=== PATIENT | female | born 1995 | race Caucasian/White ===

== ENCOUNTER 2025-05-12 18:01 | Emergency (ER) | payer OTHER ==
[2025-05-12] MEDS ORDERED: LIDOCAINE 1% 20 ML MDV ONE (19:37)
--- NOTE | 2025-05-12 19:48 | EDPHYS ---
Physician Documentation [facility] Name: Penny Rai Age: 29 yrs Sex: Female : 1995 Arrival Date: 05/12/2025 Time: 18:01 Bed 5 Private MD: ED Physician Vanessa Wright HPI: 05/12 19:48 This 29 yrs old Female presents to ER via Ambulatory with complaints of dr5 Abscess - GROIN AREA. 19:48 The patient presents with an abscess of the right lower quadrant. Onset: The dr5 symptoms/episode began/occurred 4 day(s) ago. Patient is a 29-year-old female with history of asthma coming in with 4 days of developing abscess to right lower abdomen right at suprapubic area. Patient reports that she noticed a ingrown hair get red and worse in the last 4 days. Patient denies any drainage but continued pressure.. 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 - Infectious Disease History:: Denies. - Social history:: Smoking status: Patient reports the use of cigarette tobacco products, smokes .25 packs per day. ROS: 19:48 Constitutional: as per hpi dr5 Exam: 19:48 Constitutional: This is a well developed, well nourished patient who is awake, alert, dr5 and in no acute distress. Head/Face: Normocephalic, atraumatic. Eyes: Pupils equal round and reactive to light, extra-ocular motions intact. Lids and lashes normal. Conjunctiva and sclera are non-icteric and not injected. Cornea within normal limits. Periorbital areas with no swelling, redness, or edema. Chest/axilla: Normal chest wall appearance and motion. Nontender with no deformity. No lesions are appreciated. Cardiovascular: Regular rate and rhythm with a normal S1 and S2. Normal PMI, no JVD. No pulse deficits. Respiratory: Lungs have equal breath sounds bilaterally, clear to auscultation. No rales, rhonchi or wheezes noted. No increased work of breathing, no retractions or nasal flaring. Abdomen/GI: Soft, non-tender, non-distended Female : Normal external genitalia. Skin: Warm, dry with normal turgor. Normal color with no rashes, no lesions. Abscess noted to right suprapubic area at hairline with mild surrounding cellulitis. Tender to palpation. Positive fluctuance and induration noted. MS/ Extremity: Pulses equal, no cyanosis. Neurovascular intact. Full, normal range of motion. Neuro: Awake and alert, GCS 15, oriented to person, place, time, and situation. Cranial nerves II-XII grossly intact. Motor strength 5/5 in all extremities. Sensory grossly intact. Cerebellar exam normal. Normal gait. Vital Signs: 18:26 BP 165 / 94; Pulse 87; Resp 17; Pulse Ox 98% ; Weight 98.43 kg; Height 5 ft. 5 in. ; ll1 Pain 6/10; 19:28 BP 129 / 74; Pulse 68; Resp 18; Temp 98.1; Pulse Ox 100% on R/A; Weight 97.52 kg; tb4 Height 5 ft. 5 in. ; Pain 6/10; 19:28 Body Mass Index 35.78 (97.52 kg, 165.1 cm) tb4 18:26 Pain Scale: Adult ll1 19:28 Pain Scale: Adult tb4 Procedures: 19:48 I \T\ D: Incision and drainage was performed for an abscess of the right right femoral dr5 area Prepped with alcohol, Anesthetized with 3 ml's 1% Lidocaine. Incised with #11 blade. Drained moderate amount purulent fluid. bloody fluid. Loculations removed. Abscess cavity explored. Dressing: the patient tolerated the procedure well. MDM: 18:11 Medical Screening Exam initiated dr5 19:48 Differential diagnosis: abscess, allergic reaction, cellulitis. Data reviewed: vital dr5 signs, nurses notes. Consideration of Admission/Observation Escalation of care including admission/observation considered. Considered admission if patient was febrile with extensive cellulitis. I considered the following discharge prescriptions or medication management in the emergency department I discussed and recommended Over The Counter medications, Medications were administered in the Emergency Department. See MAR. Care significantly affected by the following chronic conditions: Asthma. Care significantly affected by the following Social Determinants of Health: Poor access to healthcare and/or lack of insurance, Poor access to transportation, Problems related to employment. Counseling: I had a detailed discussion with the patient and/or guardian regarding the historical points, exam findings, and any diagnostic results supporting the discharge/admit diagnosis, the presence of at least one elevated blood pressure reading (>120/80) during this emergency department visit, the need for outpatient follow up, for definitive care, a family practitioner, to return to the emergency department if symptoms worsen or persist or if there are any questions or concerns that arise at home. Medication response: Lidocaine. Response to treatment: the patient's symptoms have markedly improved after treatment. Special discussion: I have referred the patient to see his PCP for further evaluation of high blood pressure. I discussed with the patient/guardian in detail that at this point there is no indication for admission to the hospital. It is understood, however, that if the symptoms persist or worsen the patient needs to return immediately for re-evaluation. I discussed in detail with the patient the higher chance of wound infection based on his presenting history. Based on the history and exam findings, there is no indication for further emergent testing or inpatient evaluation. I discussed with the patient/guardian the need to see the primary care provider for further evaluation of the symptoms. ED course: Incision and drainage completed with purulent drainage. Patient reports he is feeling much better. First dose of antibiotics given in ER. Will give patient pain medication as well as antibiotics. Strict ER precautions given. All question answered.. 05/12 19:31 Order name: Incision \T\ Drainage Setup; Complete Time: 20:01 dr5 Administered Medications: 20:00 Drug: Lidocaine Infiltration (1 %) 20 ml 20 ml Infiltration once; to bedside {Note: tb4 Given by provider.} Volume: 20 ml; Route: Infiltration; 20:15 Follow up: Response: No adverse reaction tb4 20:15 Drug: Cephalexin PO 500 mg PO once Route: PO; tb4 20:50 Follow up: Response: No adverse reaction tb4 20:15 Drug: Trimethoprim-Sulfamethoxazole PO (160 mg-800 mg (DS) 1 tablet PO once Route: PO; tb4 20:50 Follow up: Response: No adverse reaction tb4 Disposition Summary: 05/12/25 19:47 Discharge Ordered Notes: Location: Home dr5 Condition: Stable dr5 Diagnosis - Cutaneous abscess of other sites dr5 Followup: dr5 - With: Emergency Department - When: As needed - Reason: Worsening of condition Followup: dr5 - With: Private Physician - When: 1 - 2 days - Reason: Recheck today's complaints, Continuance of care, Re-evaluation by your physician Discharge Instructions: - Discharge Summary Sheet dr5 - Skin Abscess dr5 - Incision and Drainage dr5 Forms: - Work release form vc1 - Medication Reconciliation Form dr5 - Antibiotic Education dr5 - Patient Portal Instructions dr5 - Leadership Thank You Letter dr5 Prescriptions: - Cephalexin 500 mg Oral Capsule - take 1 capsule ORAL route every 12 hours for 10 days; 20 capsule; Refills: 0, dr5 Product Selection Permitted - Tramadol 50 mg Oral Tablet - take 1 tablet ORAL route every 8 hours as needed; 12 tablet; Refills: 0, dr5 Product Selection Permitted - Bactrim DS 800-160 mg Oral Tablet - take 1 tablet ORAL route every 12 hours for 10 days; 20 tablet; Refills: 0, dr5 Product Selection Permitted Signatures: Fariba Cox, RN RN ll1 Jayme Young, TRACK MOVING MACHINE OPERATOR-C TRACK MOVING MACHINE OPERATOR-Cdr5 Tamiko Huang RN RN tb4
--- NOTE | 2025-05-12 19:48 | ER ---
Nurse's Notes [facility] Name: Penny Rai Age: 29 yrs Sex: Female : 1995 Arrival Date: 05/12/2025 Time: 18:01 Bed 5 Private MD: Diagnosis: Cutaneous abscess of other sites Presentation: 05/12 18:26 Chief complaint: Patient states: R groin abscess for 4 days, got worse yesterday. No ll1 drainage or fever. Coronavirus screen: Client denies travel out of the [place] in the last 14 days. At this time, the client does not indicate any symptoms associated with coronavirus-19. Ebola Screen: Patient denies travel to an Ebola-affected area in the 21 days before illness onset. Initial Sepsis Screen: Does the patient meet any 2 criteria? No. Patient's initial sepsis screen is negative. Does the patient have a suspected source of infection? No. Patient's initial sepsis screen is negative. Risk Assessment: Do you want to hurt yourself or someone else? Patient reports no desire to harm self or others. Onset of symptoms was May 09, 2025. 18:26 Method Of Arrival: Ambulatory ll1 18:26 Acuity: GERTRUDIS 4 ll1 Triage Assessment: 18:26 General: Appears uncomfortable, Behavior is calm, cooperative, appropriate for age. ll1 Pain: Complains of pain in R groin Quality of pain is described as aching. Derm: Abscess located on R groin. ENERGY MANAGEMENT SPECIALIST: 20:49 Not tb4 Historical: - Allergies: 18:25 No Known Allergies; ll1 - PMHx: 18:25 Asthma; ll1 - PSHx: 18:25 section; Cholecystectomy; D\T\C; ll1 - Immunization history:: Adult Immunizations up to date. - Infectious Disease History:: Denies. - Social history:: Smoking status: Patient reports the use of cigarette tobacco products, smokes .25 packs per day. Screenin:28 [facility] ED Fall Risk Assessment (Adult) History of falling in the last 3 months, tb4 including since admission No falls in past 3 months (0 pts) Confusion or Disorientation No (0 pts) Intoxicated or Sedated No (0 pts) Impaired Gait No (0 pts) Mobility Assist Device Used No (0 pt) Altered Elimination No (0 pt) Score/Fall Risk Level 0 - 2 = Low Risk Oriented to surroundings, Maintained a safe environment, Educated pt \T\ family on fall prevention, incl call for assistance when getting out of bed. Abuse screen: Denies threats or abuse. Nutritional screening: No deficits noted. Tuberculosis screening: No symptoms or risk factors identified. Assessment: 19:24 Reassessment: Patient and/or family updated on plan of care and expected duration. Pain ll1 level reassessed. 19:28 General: Appears uncomfortable, Behavior is calm, cooperative. Pain: Complains of pain tb4 in right femoral area Pain does not radiate. Pain currently is 6 out of 10 on a pain scale. Quality of pain is described as burning, Pain began gradually, 2-3 days ago. Neuro: No deficits noted. Level of Consciousness is awake, alert, obeys commands, Oriented to person, place, time, situation, Moisture Tester are equal bilaterally Moves all extremities. Gait is steady, Speech is normal. Cardiovascular: No deficits noted. Respiratory: No deficits noted. Airway is patent Trachea midline Respiratory effort is even, unlabored, Respiratory pattern is regular, symmetrical. GI: No deficits noted. No signs and/or symptoms were reported involving the gastrointestinal system. : No deficits noted. No signs and/or symptoms were reported regarding the genitourinary system. Derm: Skin is intact, Abscess located on right femoral area Reports Pressure. Musculoskeletal: No deficits noted. Vital Signs: 18:26 BP 165 / 94; Pulse 87; Resp 17; Pulse Ox 98% ; Weight 98.43 kg; Height 5 ft. 5 in. ; ll1 Pain 6/10; 19:28 BP 129 / 74; Pulse 68; Resp 18; Temp 98.1; Pulse Ox 100% on R/A; Weight 97.52 kg; tb4 Height 5 ft. 5 in. ; Pain 6/10; 19:28 Body Mass Index 35.78 (97.52 kg, 165.1 cm) tb4 18:26 Pain Scale: Adult ll1 19:28 Pain Scale: Adult tb4 ED Course: 18:06 Patient arrived in ED. cj3 18:10 Jay[facility] FNP-C [facility]. [facility] 18:10 Vanessa Wright is Attending Physician. dr5 18:27 Triage completed. ll1 19:24 Arm band placed on Patient placed in an exam room, on a stretcher. ll1 19:28 Patient has correct armband on for positive identification. Call light in reach. Side tb4 rails up X 1. Adult w/ patient. Client placed on continuous cardiac and pulse oximetry monitoring. NIBP monitoring applied. Door closed. Warm blanket given. 19:28 Assist provider with I \T\ D: of an abscess on right groin Set up I\T\D tray. Performed by tb 4 Jayme TINEO-C Dressing with 4X4s. Patient did not have IV access during this emergency room visit. 20:49 Provided Education on: Take medication as prescribed. tb4 Administered Medications: 20:00 Drug: Lidocaine Infiltration (1 %) 20 ml 20 ml Infiltration once; to bedside {Note: tb4 Given by provider.} Volume: 20 ml; Route: Infiltration; 20:15 Follow up: Response: No adverse reaction tb4 20:15 Drug: Cephalexin PO 500 mg PO once Route: PO; tb4 20:50 Follow up: Response: No adverse reaction tb4 20:15 Drug: Trimethoprim-Sulfamethoxazole PO (160 mg-800 mg (DS) 1 tablet PO once Route: PO; tb4 20:50 Follow up: Response: No adverse reaction tb4 Medication: 19:28 VIS not applicable for this client. tb4 Outcome: 19:47 Discharge ordered by . dr5 20:49 Discharged to home ambulatory, tb4 20:49 Condition: stable 20:49 Discharge instructions given to patient, Instructed on discharge instructions, follow up and referral plans. Demonstrated understanding of instructions, follow-up care, medications, Prescriptions given X 3, 20:51 Patient left the ED. tb4 Signatures: Fariba Cox, RN RN ll1 Jayme Young FNP-C GANG PUSHER-Cdr5 Adeline Grewal cj3 Tamiko Huang, RN RN tb4 Corrections: (The following items were deleted from the chart) 20:00 19:38 Lidocaine Infiltration (1 %) 20 ml 20 ml Infiltration tb4 tb4
[2025-05-12] MEDS ORDERED: CEPHALEXIN 250 MG CAP ONE (20:02)
[2025-05-12] MEDS ORDERED: SMZ./TMP. 800/160 MG TABLET ONE (20:03)
[2025-05-12 21:04] VITALS: BP 129/74; TEMP 98.1; O2SAT 100
== END 2025-05-12 20:51 | disposition home or self-care (01) ==
LOC: ER 18:01
PROC: 0H9KXZZ Drainage of Right Lower Leg Skin, External Approach (ICD-10-PCS; principal; 2025-05-12)
DX: L02.415 Cutaneous abscess of right lower limb (principal)
CPT/HCPCS: 99284; 10060; J2003

== ENCOUNTER 2025-05-16 23:23 | Inpatient (IN) | payer OTHER ==
[2025-05-17] MEDS ORDERED: MORPHINE 4 MG/ML SYR ONE (01:27)
[2025-05-17] MEDS ORDERED: ONDANSETRON 4 MG/2 ML VIAL ONE ×2 (01:27→14:12)
[2025-05-17 01:31] LABS: Absolute Lymphocytes (CBC) 3.2 K/uL (0.7-4.9); Hematocrit 42.6 % (36.0-45.0); Hemoglobin 14.7 g/dL (12.0-15.0); MCH 30.2 pg (27.0-35.0); MCHC 34.5 g/dL (32.0-36.0); MCV 87.5 fL (80-100); MPV 9.6 fL (7.6-11.3); Nucleated RBC Absolute Count 0.0 (0-0); Nucleated Red Blood Cells % 0.0 % (0-0); RBC Red Blood Cell Count 4.87 M/uL (3.86-4.86); White Blood Count 6.80 thou/uL (4.3-10.9)
[2025-05-17 01:34] LABS: PT Prothrombin Time 12.4 SECONDS (10-13.0); PTT, Activated Partial Thromb 31.5 SECONDS (27.2-37.4); Protime INR 1.1
[2025-05-17 01:44] LABS: Urine Culture Reflex Order NOT NEEDED; Urine Microscopic Reflex YN ORDER UMIC
[2025-05-17 01:48] LABS: ALT/SGPT 93.0 U/L (13-56); AST/SGOT 61.0 U/L (15-37); Albumin 3.5 g/dL (3.4-5.0); Albumin/Globulin Ratio 0.8 (1.1-1.8); Alkaline Phosphatase 120.0 U/L (45-117); Anion Gap 9.6 mEq/L (5.0-15.0); BUN Blood Urea Nitrogen 7.0 mg/dL (7-18); Globulin 4.2 g/dL (2.3-3.5); Glucose Level 333.0 mg/dL (74-106); Potassium 3.6 mEq/L (3.5-5.1)
[2025-05-17] MEDS ORDERED: NA CHLORIDE 0.9% 250 ML ONE (02:00)
[2025-05-17] MEDS ORDERED: VANCOMYCIN 1 GM/VIAL ONE (02:00)
[2025-05-17] MEDS ORDERED: NA CHLORIDE 0.9% 100 ML ONE (02:01)
[2025-05-17] MEDS ORDERED: NA CHLORIDE 0.9% 3,000 ML ONE (02:01)
[2025-05-17] MEDS ORDERED: CEFEPIME 1 GM/VIAL ONE (02:02)
--- NOTE | 2025-05-17 04:20 | RAD REPORT ---
EXAM DESCRIPTION: Abdomen Pelvis W Contrast CLINICAL HISTORY: right suprapubic swelling and erythema COMPARISON: None Available. TECHNIQUE: CT of the abdomen and pelvis performed following IV administration of iodinated contrast . This exam was performed according to our departmental dose-optimization program, which includes automated exposure control, adjustment of the mA and/or kV according to patient size and/or use of it erative reconstruction technique. FINDINGS: Lung Bases: The visualized lung bases are clear. Bones: Mild multilevel facet arthropathy. Mild posterior disc osteophyte complex at L5/S1 produces mi ld neural foraminal narrowing. Mild bilateral hip joint space narrowing. Abdomen: Liver: Hepatomegaly with decreased density. Gallbladder: Prior cholecystectomy. Spleen, Pancreas, and Adrenal Glands: The spleen, pancreas, and adrenal glands are unremarkable. Kidneys: No hydronephrosis or obstructing calculus. Vasculature: The aorta and IVC have normal caliber and position. The portal vein is patent. The pro ximal visceral and renal arteries are patent. Stomach: The stomach and duodenum have normal course. Other: No free intraperitoneal air. No free fluid or lymphadenopathy. Mild nonspecific fat strand ing in the subcutaneous soft tissues overlying the pubic symphysis. No well-circumscribed fluid collection. Pelvis: Bladder: Urinary bladder is unremarkable. Bowel: No dilated loops of large or small bowel. Moderate amount of stool. Appendix: Normal appendix. Pelvis: Uterus is not enlarged. IMPRESSION: 1. Mild nonspecific fat stranding in the subcutaneous soft tissues overlying the pubic symphysis. N o well-circumscribed fluid collection. This could be seen with cellulitis. 2. Hepatomegaly and hepatic steatosis. Electronically signed by: Tra Tracy DO 05/17/2025 04:09 AM [facility] [id number] Due to temporary technical issues with the PACS/Tittat reporting system, reports are being frank d by the in-house radiologist without review as a courtesy to ensure prompt reporting the interpreting radiologist is fully responsible for the content of the report. Transcribed Date/Time: 05/17/2025 4:20 AM
--- NOTE | 2025-05-17 04:57 | EDPHYS ---
Physician Documentation [facility] Name: Penny Rai Age: 29 yrs Sex: Female : 1995 Arrival Date: 05/16/2025 Time: 23:23 Bed 13 Private MD: ED Physician Rojelio Steele HPI: 05/17 00:40 This 29 yrs old Female presents to ER via Ambulatory with complaints of Abscess. cp 00:40 Patient is a 29-year-old female with past medical history significant for asthma who cp returns to the emergency department after being seen on 05/12/2025 for abscess and cellulitis of the right suprapubic area. Patient reports at that visit the area was drained and she was prescribed antibiotics which she has been taking but has had increasing redness and swelling to the area over the last several days. Patient has not measured a fever at home, no vomiting and/or diarrhea and denies any abdominal pain. 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 - Infectious Disease History:: Denies. - Social history:: Smoking status: Patient reports the use of cigarette tobacco products, smokes one-half pack cigarettes per day, Patient uses alcohol, occasionally. Patient/guardian denies using street drugs. ROS: 00:45 Constitutional: Negative for body aches, chills, fever, poor PO intake, cp 00:45 Cardiovascular: Negative for chest pain, cp 00:45 Respiratory: Negative for cough, shortness of breath, wheezing, 00:45 Abdomen/GI: Negative for abdominal pain, vomiting, diarrhea, constipation, 00:45 Skin: Positive for cellulitis, of the right suprapubic area, 00:45 Neuro: Negative for altered mental status, dizziness, headache, weakness, 00:45 All other systems are negative, Exam: 00:50 Constitutional: The patient appears in no acute distress, alert, awake, non-toxic, well cp developed, well nourished, obese, uncomfortable, 00:50 Head/Face: Normocephalic, atraumatic. cp 00:50 Eyes: Periorbital structures: appear normal, Conjunctiva: normal, no exudate, no injection, Sclera: no appreciated abnormality, Lids and lashes: appear normal, 00:50 ENT: External ear(s): are unremarkable, Nose: is normal, Mouth: Lips: moist, Oral mucosa: moist, 00:50 Chest/axilla: Inspection: normal, 00:50 Cardiovascular: Rate: normal, Rhythm: regular, 00:50 Respiratory: the patient does not display signs of respiratory distress, Respirations: normal, no use of accessory muscles, no retractions, labored breathing, is not present, Breath sounds: are clear throughout, no decreased breath sounds, no stridor, no wheezing, 00:50 Abdomen/GI: Inspection: obese Palpation: abdomen is soft and non-tender, in all quadrants, 00:50 Back: pain, is absent, ROM is normal, 00:50 Skin: large area of induration and erythema noted left suprapubic area, scant drainage expressed, tender to palpation. no erythema noted of external genitalia. 00:53 ECG was reviewed by the Attending Physician. cp Vital Signs: 00:05 BP 132 / 87; Pulse 81; Resp 16 S; Temp 98(O); Pulse Ox 98% on R/A; Weight 98.43 kg (R); lg3 Height 5 ft. 5 in. (R); 01:02 BP 148 / 88; Pulse 77; Resp 18; Temp 98(O); Pulse Ox 100% on R/A; Weight 98.43 kg; tb4 Height 5 ft. 5 in. ; Pain 6/10; 02:04 BP 137 / 74; Pulse 88; Resp 18; Pulse Ox 99% on R/A; Pain 2/10; tb4 03:09 BP 144 / 85; Pulse 77; Resp 17; Pulse Ox 97% on R/A; Pain 2/10; tb4 04:00 BP 146 / 78; Pulse 73; Resp 16; Pulse Ox 100% ; Pain 2/10; tb4 05:33 BP 137 / 86; Pulse 82; Resp 19; Pulse Ox 100% on R/A; tb4 01:02 Body Mass Index 36.11 (98.43 kg, 165.1 cm) tb4 01:02 Pain Scale: Adult tb4 02:04 Pain Scale: Adult tb4 03:09 Pain Scale: Adult tb4 04:00 Pain Scale: Adult tb4 MDM: 00:08 Medical Screening Exam initiated cp 04:55 Differential diagnosis: abscess, cellulitis. rn 04:55 Data reviewed: vital signs, nurses notes, lab test result(s), radiologic studies, CT rn scan, and as a result, I will admit patient. Consideration of Admission/Observation Patient was admitted/placed on observation. Escalation of care including admission/observation considered. Management of patient was discussed with the following: Hospitalist: Case and management discussed with hospitalist Dr. Love, will admit for IV antibiotics. Counseling: I had a detailed discussion with the patient and/or guardian regarding the historical points, exam findings, and any diagnostic results supporting the discharge/admit diagnosis, lab results, radiology results, the need for further work-up and treatment in the hospital. Response to treatment: the patient's symptoms have mildly improved after treatment, and as a result, I will admit patient. 05/17 00:37 Order name: Wound Culture cp 05/17 00:37 Order name: Blood Culture Adult (2) cp 05/17 00:37 Order name: CBC with Diff; Complete Time: 01:45 cp 05/17 01:45 Interpretation: Normal except: RBC 4.87. cp 05/17 00:37 Order name: CMP; Complete Time: 03:00 cp 05/17 00:37 Order name: Lactate w/ 2H reflex if indic.; Complete Time: 03:00 cp 05/17 00:37 Order name: Protime (+inr); Complete Time: 01:40 cp 05/17 00:37 Order name: Ptt, Activated; Complete Time: 01:40 cp 05/17 00:37 Order name: UA Rfx Ilir Cult if indicated; Complete Time: 01:45 cp 05/17 00:37 Order name: Test, Serum; Complete Time: 01:40 cp 05/17 00:53 Order name: Glucose, Ancillary Testing; Complete Time: 01:40 EDMS 05/17 01:40 Interpretation: Reviewed. cp 05/17 01:48 Order name: Ghost Lactate-NO COLLECT Timer; Complete Time: 04:09 EDMS 05/17 05:36 Order name: Lactate w/ 2H reflex if indic. EDMS 05/17 05:36 Order name: CBC with Automated Diff EDDC 05/17 05:36 Order name: CBC with Automated Diff EDDC 05/17 05:36 Order name: Comprehensive Metabolic Panel EDDC 05/17 05:36 Order name: Comprehensive Metabolic Panel EDDC 05/17 07:33 Order name: Hemoglobin A1c EDDC 05/17 00:37 Order name: CT Abd/Pelvis - IV Contrast Only 05/17 05:36 Order name: CONS Physician Consult EDDC 05/17 00:37 Order name: Accucheck; Complete Time: 00:53 cp 05/17 00:37 Order name: Cardiac monitoring; Complete Time: 00:53 cp 05/17 00:37 Order name: EKG - Nurse/Tech; Complete Time: 00:53 cp 05/17 00:37 Order name: IV Saline Lock - Large Bore; Complete Time: 00:53 cp 05/17 00:37 Order name: Labs collected and sent; Complete Time: 00:53 cp 05/17 00:37 Order name: O2 Per Protocol; Complete Time: 00:53 cp 05/17 00:37 Order name: O2 Sat Monitoring; Complete Time: 00:53 cp 05/17 00:37 Order name: Vital Signs; Complete Time: 01:08 cp EC:53 Rate is 84 beats/min. Rhythm is regular. IA interval is normal. QRS interval is cp prolonged at 106 msec. QT interval is normal. T waves are Inverted in leads aVL, aVR, V2. Interpreted by me. Reviewed by me. Administered Medications: 01:36 Drug: morphine IVP or IV 4 mg IVP once over 4 mins Route: IVP; Infused Over: 4 mins; tb4 Site: left antecubital; 02:34 Follow up: Response: No adverse reaction; Pain is decreased; RASS: Alert and Calm (0) tb4 01:36 Drug: Ondansetron IVP 4 mg IVP once; over 2 minutes Route: IVP; Site: left antecubital; tb4 02:34 Follow up: Response: No adverse reaction tb4 02:33 Drug: Cefepime IVPB 1 grams IVPB at 200 ml/hr once over 30 mins; (mix in NS 100 mL) tb4 Route: IVPB; Rate: 200 ml/hr; Infused Over: 30 mins; Site: left antecubital; 03:00 Follow up: Response: No adverse reaction; IV Status: Completed infusion tb4 02:34 Drug: NS 0.9% IV (30 ml/kg) 30 ml/kg IV at bolus once; Sepsis Protocol; to be given as tb4 a bolus over 90 minutes Route: IV; Rate: bolus; Site: left antecubital; 05:30 Follow up: Response: No adverse reaction; IV Status: Completed infusion; IV Intake: tb4 2952.9ml 02:34 Drug: vancoMYCIN IVPB 1 grams IVPB once over 2 hrs Route: IVPB; Infused Over: 2 hrs; tb4 Site: left antecubital; 05:12 Follow up: Response: No adverse reaction; IV Status: Completed infusion tb4 Disposition: 04:55 Co-signature as Attending Physician, Rojelio Steele MD I agree with the assessment and rn plan of care. I reviewed the patient's care provided by Advanced Practice Provider \T\ agree w/ the diagnosis \T\ care plan. I personally saw the pt \T\ performed a substantive portion of the visit, incldng all aspects of the (History/Exam/Medical Decision Making). PA/MOLDING LINE OPERATOR's history reviewed, patient interviewed, and examined. HPI: 29-year-old female status post incision and drainage and now worsening redness and swelling to suprapubic region I agree with assessment and care plan and confirm the diagnosis (es) above. I performed majority of care of this patient including history, interpretation of results and admission to hospitalist. Disposition Summary: 05/17/25 04:56 Hospitalization Ordered Notes: Hospitalization Status: Inpatient Admission rn Provider: Nathaniel Love rn Condition: Stable rn Problem: new rn Symptoms: have worsened rn Bed/Room Type: Standard rn Location: Telemetry/MedSurg (Inpatient)(05/17/25 06:50) ja1 Room Assignment: 411(05/17/25 06:50) ja1 Diagnosis - Cellulitis of abdominal wall rn Forms: - Medication Reconciliation Form rn - SBAR form rn - Leadership Thank You Letter rn Signatures: Dispatcher [employer] Rojelio Pate MD MD rn Page, Corey, PA PA cp Aguilar, Jose, RN RN ja1 Edilia Aguila RN RN [email or web address] Anat Mendez Terri RN RN tb4 Corrections: (The following items were deleted from the chart) 00:37 00:37 Wound Culture+BA.LAB.BRZ ordered. EDMS EDMS 00:37 00:37 BLOOD CULTURE*+BA.LAB.BRZ ordered. EDMS EDMS 00:37 00:37 CBC+H.LAB.BRZ ordered. EDMS EDMS 00:37 00:37 COMPREHENSIVE METABOLIC PANEL+C.LAB.BRZ ordered. EDMS EDMS 00:37 00:37 LACTATE+C.LAB.BRZ ordered. EDMS EDMS 00:37 00:37 PROTIME (+INR)+COAG.LAB.BRZ ordered. EDMS EDMS 00:37 00:37 PTT, ACTIVATED+COAG.LAB.BRZ ordered. EDMS EDMS 00:37 00:37 UA Rfx Ilir Cult if indicated+U.LAB.BRZ ordered. EDMS EDMS 00:37 00:37 TEST, SERUM+SC.LAB.BRZ ordered. EDMS EDMS 00:38 00:38 Abdomen Pelvis W Con+CT.RAD.BRZ ordered. EDMS EDMS 05:17 04:56 Telemetry/MedSurg (Inpatient) panchito fermin 05:17 04:56 panchito fermin 06:50 05:17 [facility] ER HOLD vk ja1 06:50 05:17 ERHOLD- zander ja1
--- NOTE | 2025-05-17 04:57 | ER ---
Nurse's Notes [facility] Name: Penny Rai Age: 29 yrs Sex: Female : 1995 Arrival Date: 05/16/2025 Time: 23:23 Bed 13 [facility] MD: Diagnosis: Cellulitis of abdominal wall Presentation: 05/17 00:05 Chief complaint: Patient states: seen on Wednesday here for abcess in my right groin and lg3 it was drained. i think its back. Coronavirus screen: Client denies travel out of the [place] in the last 14 days. At this time, the client does not indicate any symptoms associated with coronavirus-19. Ebola Screen: No symptoms or risks identified at this time. Initial Sepsis Screen: Does the patient meet any 2 criteria? No. Patient's initial sepsis screen is negative. Does the patient have a suspected source of infection? No. Patient's initial sepsis screen is negative. Risk Assessment: Do you want to hurt yourself or someone else? Patient reports no desire to harm self or others. Onset of symptoms is unknown. 00:05 Method Of Arrival: Ambulatory lg3 00:05 Acuity: GERTRUDIS 3 lg3 Triage Assessment: 00:07 General: Appears in no apparent distress. uncomfortable, Behavior is calm, cooperative. lg3 Pain: Complains of pain in pelvis. EENT: No deficits noted. No signs and/or symptoms were reported regarding the EENT system. Neuro: No deficits noted. Pereira Agitation-Sedation Scale (RASS): 0 - Alert and Calm Level of Consciousness is awake, alert, obeys commands, Oriented to person, place, time, situation. Cardiovascular: No deficits noted. Denies chest pain, shortness of breath, Capillary refill < 3 seconds Clubbing of nail beds is absent JVD is absent Patient's skin is warm and dry. Respiratory: No deficits noted. Airway is patent Respiratory effort is even, unlabored, Respiratory pattern is regular, symmetrical. GI: No deficits noted. No signs and/or symptoms were reported involving the gastrointestinal system. : No signs and/or symptoms were reported regarding the genitourinary system. Derm: Reports abscess to right groin. Musculoskeletal: No deficits noted. No signs and/or symptoms reported regarding the musculoskeletal system. Circulation, motion, and sensation intact. Range of motion: intact in all extremities. 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 - Infectious Disease History:: Denies. - Social history:: Smoking status: Patient reports the use of cigarette tobacco products, smokes one-half pack cigarettes per day, Patient uses alcohol, occasionally. Patient/guardian denies using street drugs. Screenin:02 [facility] ED Fall Risk Assessment (Adult) History of falling in the last 3 months, tb4 including since admission No falls in past 3 months (0 pts) Confusion or Disorientation No (0 pts) Intoxicated or Sedated No (0 pts) Impaired Gait No (0 pts) Mobility Assist Device Used No (0 pt) Altered Elimination No (0 pt) Score/Fall Risk Level 0 - 2 = Low Risk Oriented to surroundings. Abuse screen: Denies threats or abuse. Nutritional screening: No deficits noted. Tuberculosis screening: No symptoms or risk factors identified. Assessment: 00:38 Reassessment: Patient is alert, oriented x 3, equal unlabored respirations, skin tb4 warm/dry/pink. See triage note. General: Appears uncomfortable, Behavior is calm, cooperative. Pain: Complains of pain in groin and right femoral area Pain does not radiate. Pain currently is 6 out of 10 on a pain scale. Quality of pain is described as pressure, Pain began gradually, week and a half Is continuous, Alleviated by nothing. Aggravated by repositioning. Neuro: No deficits noted. Level of Consciousness is awake, alert, obeys commands, Oriented to person, place, time, situation, Moves all extremities. Full function Gait is steady, Speech is normal, Facial symmetry appears normal. Cardiovascular: No deficits noted. Respiratory: No deficits noted. Airway is patent Trachea midline Respiratory effort is even, unlabored, Respiratory pattern is regular, symmetrical. GI: No deficits noted. : No deficits noted. Derm: Skin is intact, is healthy with good turgor, Abscess located on groin and right femoral area Reports increased pressure. Musculoskeletal: No deficits noted. No signs and/or symptoms reported regarding the musculoskeletal system. Vital Signs: 00:05 BP 132 / 87; Pulse 81; Resp 16 S; Temp 98(O); Pulse Ox 98% on R/A; Weight 98.43 kg (R); lg3 Height 5 ft. 5 in. (R); 01:02 BP 148 / 88; Pulse 77; Resp 18; Temp 98(O); Pulse Ox 100% on R/A; Weight 98.43 kg; tb4 Height 5 ft. 5 in. ; Pain 6/10; 02:04 BP 137 / 74; Pulse 88; Resp 18; Pulse Ox 99% on R/A; Pain 2/10; tb4 03:09 BP 144 / 85; Pulse 77; Resp 17; Pulse Ox 97% on R/A; Pain 2/10; tb4 04:00 BP 146 / 78; Pulse 73; Resp 16; Pulse Ox 100% ; Pain 2/10; tb4 05:33 BP 137 / 86; Pulse 82; Resp 19; Pulse Ox 100% on R/A; tb4 01:02 Body Mass Index 36.11 (98.43 kg, 165.1 cm) tb4 01:02 Pain Scale: Adult tb4 02:04 Pain Scale: Adult tb4 03:09 Pain Scale: Adult tb4 04:00 Pain Scale: Adult tb4 ED Course: 05/16 23:26 Patient arrived in ED. jj6 23:28 Dhaval Hudson PA is PHCP. cp 23:28 Rojelio Steele MD is Attending Physician. cp 05/17 00:07 Triage completed. lg3 00:07 Arm band placed on right wrist. lg3 00:53 EKG done, by imaging technologist. ts3 00:53 Inserted saline lock: 20 gauge in left antecubital area, using aseptic technique. Blood ts3 collected. Flushed with 10 mL NS. 01:02 Patient has correct armband on for positive identification. Placed in gown. Bed in low tb4 position. Call light in reach. Side rails up X 1. Client placed on continuous cardiac and pulse oximetry monitoring. NIBP monitoring applied. cardiac monitor technician on. Door closed. Lights dimmed. Warm blanket given. 02:09 CT Abd/Pelvis - IV Contrast Only In Process Unspecified. EDMS 04:56 Nathaniel Love MD is Hospitalizing Provider. rn 05:34 No provider procedures requiring assistance completed. tb4 Administered Medications: 01:36 Drug: morphine IVP or IV 4 mg IVP once over 4 mins Route: IVP; Infused Over: 4 mins; tb4 Site: left antecubital; 02:34 Follow up: Response: No adverse reaction; Pain is decreased; RASS: Alert and Calm (0) tb4 01:36 Drug: Ondansetron IVP 4 mg IVP once; over 2 minutes Route: IVP; Site: left antecubital; tb4 02:34 Follow up: Response: No adverse reaction tb4 02:33 Drug: Cefepime IVPB 1 grams IVPB at 200 ml/hr once over 30 mins; (mix in NS 100 mL) tb4 Route: IVPB; Rate: 200 ml/hr; Infused Over: 30 mins; Site: left antecubital; 03:00 Follow up: Response: No adverse reaction; IV Status: Completed infusion tb4 02:34 Drug: NS 0.9% IV (30 ml/kg) 30 ml/kg IV at bolus once; Sepsis Protocol; to be given as tb4 a bolus over 90 minutes Route: IV; Rate: bolus; Site: left antecubital; 05:30 Follow up: Response: No adverse reaction; IV Status: Completed infusion; IV Intake: tb4 2952.9ml 02:34 Drug: vancoMYCIN IVPB 1 grams IVPB once over 2 hrs Route: IVPB; Infused Over: 2 hrs; tb4 Site: left antecubital; 05:12 Follow up: Response: No adverse reaction; IV Status: Completed infusion tb4 Medication: 01:02 VIS not applicable for this client. tb4 Intake: 05:30 IV: 2953ml; Total: 2953ml. tb4 Outcome: 04:56 Decision to Hospitalize by Provider. rn 08:10 Patient left the ED. ty Signatures: Dispatcher [employer] EDMS Rojelio Steele MD MD rn Page, Corey, PA PA cp Able, Lacie, RN RN lg3 Kelly Foster Tylor ty Tamiko Huang RN RN tb4 Kacy Rincon 3
[2025-05-17] MEDS ORDERED: ACETAMINOPHEN 325 MG TABLET PO PRN (05:32)
[2025-05-17] MEDS ORDERED: ONDANSETRON 4 MG/2 ML VIAL IV PRN (05:32)
--- NOTE | 2025-05-17 05:37 | P.HP ---
Certification for Inpatient Patient admitted to: Inpatient With expected LOS: >2 Midnights Practitioner: I am a practitioner with admitting privileges, knowledge of patient current condition, hospital course, and medical plan of care. Services: Services provided to patient in accordance with Admission requirements found in Title 42 Section 412.3 of the Code of Federal Regulations Patient History Date of Service: 05/17/25 Reason for admission: Suprapubic abscess History of Present Illness: 29 yrs old Femal with no significant past medical history other than asthma e who was brought to ER with pain and swelling in the suprapubic region. Patient was seen in the ER on 05/12/2025 for cellulitis and possible abscess of his right suprapubic area and had an I&D done and was discharged home with p.o. antibiotics came to ER with pain and worsening discomfort and swelling of the same area. Patient denies any fever or chills. No chest pain or shortness of breath. No nausea vomiting or diarrhea. Patient was assessed in the ER and was admitted for further management of suprapubic abscess and lactic acidosis - Past Medical/Surgical History Past Medical History: Reviewed- Non-Contributory Past Surgical History: Reviewed- Non-Contributory - Family History Family History: Reviewed- Non-Contributory - Social History Smoking Status: Never smoker Review of Systems 10-point ROS is otherwise unremarkable Other: Constitutional: Reports: generalized weakness. Skin: Denies: rash. Allergy/Immun: Denies: rhinorrhea, sneezing. Eyes: Denies: visual loss/blurred. ENT: Denies: earache, nasal congestion. Respiratory: Denies: non productive cough. Cardiovascular: Denies: chest pain, palpitations. GI: Denies: diarrhea, nausea. : Denies: dysuria. Musculoskeletal: Reports: arthritis. Denies: extremity pain. Heme: Denies: bleeding. Endocrine: Denies: polydipsia. Neuro: Reports: dizziness, gait problem, lightheaded, spinning sensation. Psych: Reports: anxiety. All systems rev & neg: except as noted Physical Examination - Vital Signs Temperature: 98.2 F Blood Pressure: 138/72 Pulse: 82 Respirations: 18 Pulse Ox (%): 94 - Physical Exam General: Alert, Oriented x3, Mild distress HEENT: Atraumatic, Normocephalic Neck: Supple Respiratory: Clear to auscultation bilaterally, Normal air movement Cardiovascular: Regular rate/rhythm, Normal S1 S2 Capillary refill: <2 Seconds Gastrointestinal: Soft and benign, W/out hepatosplenomegaly Musculoskeletal: No clubbing, No swelling Integumentary: No rashes, Tenderness/swelling, Erythema, Other (Suprapubic area on the right side) Neurological: Other (Alert awake nonfocal) Lymphatics: No axilla or inguinal lymphadenopathy - Studies Laboratory Data (last 24 hrs) 05/17/25 05/17/25 05/17/25 00:45 00:45 00:45 WBC 6.80 Hgb 14.7 Hct 42.6 Plt Count 242 PT 12.4 INR 1.10 APTT 31.5 Sodium 135 L Potassium 3.6 BUN 7 Creatinine 0.97 Glucose 333 H Total Bilirubin 0.3 AST 61 H ALT 93 H Alkaline Phosphatase 120 H Assessment and Plan - Plan Suprapubic abscess Right side Lactic acidosis Hyponatremia Elevated LFTs Plan IV hydration Lactic acid trended Started on antibiotics Pain control Surgical consult Will obtain cultures Change antibiotic as per sensitivity Asthma Continue home medications GI/DVT prophylaxis Advanced directive full code Discharge Plan: Home Plan to discharge in: 48 Hours - Advance Directives Does patient have a Living Will: No Does patient have a Durable POA for Healthcare: No - Code Status/Comfort Care Code Status: Full Code Time Spent Managing Pts Care (In Minutes): 48
[2025-05-17] MEDS: NA CHLORIDE 0.9% 1,000 ML IV SCH (06:00)
[2025-05-17] MEDS ORDERED: VANCOMYCIN 1 GM in NA CHLORIDE 0.9% 250 ML IVPB SCH (06:00)
[2025-05-17 06:30] VITALS: BMI 38.4
[2025-05-17] MEDS ORDERED: CEFTRIAXONE 1000 MG/VIAL ONE (06:33)
[2025-05-17] MEDS ORDERED: NA CHLORIDE 0.9% 50 ML ONE (06:34)
[2025-05-17] MEDS: VANCOMYCIN 1.75 GM in NA CHLORIDE 0.9% 500 ML IVPB SCH (09:02)
--- NOTE | 2025-05-17 12:26 | CON ---
Date of Consultation: 05/17/2025 Brief History Of Present Illness: The patient is a 29-year-old female with no past medical history o ther than asthma who brought to the ER with complaints of pain in abdominal/pubic area. She was take n to the ER on Wednesday where she had a lancing of a right pubic abscess which was opened up, however , on Wednesday she had done. She went home and the next day she started feeling it was getting worse and as such, over the course of the past few days, got significantly worse with redness, swelling, te nderness, pain and more drainage. Denies such she came to the emergency room with the above-stated c omplaints. Past Medical History: Asthma. Past Surgical History: She had a , cholecystectomy, incision and drainage of pubic abscess. Social History: She denies recreational drug use. She smokes cigarettes. Family History: She denies any family history. Review of Systems: Ten-point review of systems other than HPI, denies. Physical Examination: General: At the time of my examination, she is awake, alert, oriented. PSYCHIATRIC: Appropriate, conversive. HEENT: Normocephalic. Sclerae anicteric. Mucous membranes are moist. oropharynx clear. Neck: Supple. No JVD. Chest: Normal to expansion and excursion. Cardiovascular: Regular rate and rhythm. Pulmonary: Clear to auscultation bilaterally. Abdomen: Soft. Focused examination of the pubic area, she has a right pubic swelling, tenderness, d rainage and a pubic incision which has some clear/cloudy drainage from the area consistent with a pos sible abscess. She has tenderness in the area with redness extending up to the mons area to the righ t of midline, predominantly, but extending to the area. Extremities: Otherwise no clubbing, cyanosis, or edema. Skin: Warm and dry. Laboratory Data: Revealed a white blood cell count of 6.8, hemoglobin 14.7, hematocrit 42.6, platele t count was 242, neutrophils 42%. PT 12.4, INR 1.1, PTT 31.5. Sodium 135, potassium 3.6, chloride 1 01, carbon dioxide 28, BUN 7, creatinine 0.9, glucose is 333. Her lactic acid was 2.8. On admission , her total bilirubin 0.3, AST 61, ALT 93, alkaline phosphatase 120. Her test was negative . She had imaging performed, which included a CT of abdomen and pelvis officially read as mild nonsp ecific fat stranding the subcutaneous soft tissues overlying the pubic symphysis. No well-circumscri bed collections could be seen with cellulitis, hepatomegaly, hepatic steatosis. Assessment And Plan: This is a 29-year-old female, who comes in with signs and symptoms of pubic inf ection, inflammation, drainage, and possible necrotic/abscess material. 1. IV fluid hydration. 2. Antibiotic coverage. 3. I have explained risks, benefits, and alternatives of incision and drainage and debridement of the right pubic abscess/infected tissue including, but not limited to bleeding, infection, damage to ran rounding tissue, need for further operative procedures. The patient displayed understanding of above -stated plan and agreed to proceed as indicated. JERRY/REJI Voice ID: [id number] Report ID: [id number]
[2025-05-17] MEDS ORDERED: FENTANYL CITR 100 MCG/2 ML ONE (14:12)
[2025-05-17] MEDS ORDERED: MIDAZOLAM HCL 2 MG/2 ML INJ ONE (14:12)
[2025-05-17] MEDS ORDERED: LIDOCAINE 2% MPF 5 ML VIAL ONE (14:12)
--- NOTE | 2025-05-17 14:18 | P.PN ---
Date of Service: 05/17/25 Patient is n.p.o. for I&D of recurrent abdominal wall cellulitis and abscess. Case discussed with Dr. Steiner from surgery. She is scheduled for OR today. Continue antibiotics and pain control
[2025-05-17] MEDS: LIDOCAINE HCL/EPINEPHRINE 20 ML MDV ONE (14:59)
--- NOTE | 2025-05-17 15:06 | P.OP ---
Preoperative diagnosis: RIGHT Pubic Abscess / Infection Postoperative diagnosis: RIGHT Pubic Abscess / Infection Primary procedure: Debridement of RIGHT Pubic Abscess / Infection Anesthesia: GETA + Local Estimated blood loss: <5cc Specimen: Cultures Findings: Necrosis, small loculations of abscesses Complications: None Transferred to: Recovery Room Condition: Good
--- NOTE | 2025-05-17 17:25 | OP ---
Date of Procedure: 05/17/2025 Surgeon: Vinnie Steiner MD, Preoperative Diagnosis: Right pubic abscess/infection. Postoperative Diagnosis: Right pubic abscess/infection. Procedure Performed: Debridement of right pubic abscess/infection. Anesthesia: General endotracheal plus local with 1% lidocaine with epinephrine. Estimated Blood Loss: Less than 5 cc. Specimens: Culture sent for both aerobic and anaerobic speciation. Findings: Necrosis of the pubic, adipose tissue, and small loculations with abscesses in the right p ubic area. Complications: None. Disposition: The patient was transferred to recovery room in good condition. Procedure In Detail: After informed consent was obtained, the patient was brought to the operating r oom, prepped and draped in the usual sterile fashion. After adequate anesthesia was achieved, I made a linear incision extending from previous incision in the right pubic area towards the mons. At thi s point, I encountered abscess like material. This was cultured on both aerobic and anaerobic specia tion. I then digitized the area and broke up several loculations of abscess material. This area was debrided sharply until all nonviable tissue was removed and cleansed out. I then irrigated the area copiously. Hemostasis was achieved with electrocautery. The wound was irrigated once again and the n packed with Vashe soaked gauze and a sterile dressing was placed over top. The patient tolerated t he procedure without incident or complication, transferred to PACU in good condition. All counts were correct at the end of the case. JERRY/REJI Voice ID: [id number] Report ID: [id number]
[2025-05-17] MEDS: MORPHINE 2 MG/ML SYR IV PRN (17:43)
[2025-05-17] MEDS: HYDROCODONE/APAP 5/325 MG TAB PO PRN (21:25)
[2025-05-18] MEDS: MELATONIN 3 MG TABLET PO PRN (01:18)
[2025-05-18] MEDS: IBUPROFEN 400 MG TAB PO ONE (01:18)
[2025-05-18] MEDS: CEFTRIAXONE 1,000 MG in NA CHLORIDE 0.9% 50 ML IVPB SCH (06:13)
[2025-05-18 06:24] LABS: Absolute Lymphocytes (CBC) 2.2 K/uL (0.7-4.9); Hematocrit 37.8 % (36.0-45.0); Hemoglobin 13.0 g/dL (12.0-15.0); MCH 30.1 pg (27.0-35.0); MCHC 34.4 g/dL (32.0-36.0); MCV 87.5 fL (80-100); MPV 8.7 fL (7.6-11.3); Nucleated RBC Absolute Count 0.0 (0-0); Nucleated Red Blood Cells % 0.1 % (0-0); RBC Red Blood Cell Count 4.32 M/uL (3.86-4.86); White Blood Count 5.90 thou/uL (4.3-10.9)
[2025-05-18 06:44] LABS: ALT/SGPT 64.0 U/L (13-56); AST/SGOT 33.0 U/L (15-37); Albumin 2.6 g/dL (3.4-5.0); Albumin/Globulin Ratio 0.8 (1.1-1.8); Alkaline Phosphatase 89.0 U/L (45-117); Anion Gap 8.7 mEq/L (5.0-15.0); BUN Blood Urea Nitrogen 5.0 mg/dL (7-18); Globulin 3.2 g/dL (2.3-3.5); Glucose Level 267.0 mg/dL (74-106); Potassium 3.7 mEq/L (3.5-5.1)
[2025-05-18] MEDS: POTASSIUM CL SA 10 MEQ TAB PO ONE (09:02)
--- NOTE | 2025-05-18 09:44 | P.DS ---
Admission Date: 05/17/25 Discharge Date: 05/18/25 Disposition: ROUTINE DISCHARGE Discharge Condition: GOOD Reason for Admission: Suprapubic abscess Hospital Course: Patient is a 29-year-old female with obesity and type 2 diabetes mellitus. She was admitted after she presented with a suprapubic cellulitis and abscess. She is now status post I&D by surgery. She was found to have necrosis and small loculations of abscess. Patient is not septic. She has been cleared by surgery. She will be discharged on a 2-week course of Augmentin. Additionally, patient has uncontrolled diabetes with hyperglycemia. Her fasting blood glucose was 267 today and her A1c 10.6. She will be started on insulin. I have provided some bedside education regarding signs and symptoms of hypoglycemia and hyperglycemia. Patient understood instructions. clinical nurse educator will be consulted as well before discharge for dietary compliance. Vital Signs/Physical Exam: Temp Pulse Resp BP Pulse Ox 98.3 F 70 18 137/79 97 05/18/25 08:00 05/18/25 08:00 05/18/25 09:01 05/18/25 08:00 05/18/25 09:01 General: Alert, In no apparent distress, Cooperative, Obese HEENT: Atraumatic, Normocephalic Respiratory: Clear to auscultation bilaterally, Normal air movement Cardiovascular: No edema, Normal pulses, Regular rate/rhythm, Normal S1 S2 Gastrointestinal: Soft and benign, Non-distended Neurological: Normal speech Laboratory Data at Discharge: WBC 5.90 thou/uL (4.3-10.9) 05/18/25 06:03 Hgb 13.0 g/dL (12.0-15.0) 05/18/25 06:03 Hct 37.8 % (36.0-45.0) 05/18/25 06:03 Plt Count 239 thou/uL (152-406) 05/18/25 06:03 PT 12.4 SECONDS (10-13.0) 05/17/25 00:45 INR 1.10 05/17/25 00:45 APTT 31.5 SECONDS (27.2-37.4) 05/17/25 00:45 Sodium 139 mEq/L (136-145) 05/18/25 06:03 Potassium 3.7 mEq/L (3.5-5.1) 05/18/25 06:03 BUN 5 mg/dL (7-18) L 05/18/25 06:03 Creatinine 0.55 mg/dL (0.55-1.02) 05/18/25 06:03 Glucose 267 mg/dL (74-106) H 05/18/25 06:03 Total Bilirubin 0.3 mg/dL (0.2-1.0) 05/18/25 06:03 AST 33 U/L (15-37) 05/18/25 06:03 ALT 64 U/L (13-56) H 05/18/25 06:03 Alkaline Phosphatase 89 U/L (45-117) 05/18/25 06:03 Home Medications: Amox/Clavulanate [Augmentin 875-125 Tab] 875 mg PO BID #28 tab 05/18/25 Hydrocodone 5/APAP 325 [[place] 5/325*] 1 tab PO Q4H PRN #18 tab 05/18/25 Insulin Glargine,Hum.rec.anlog [Lantus] 10 unit SQ BEDTIME #300 ml 05/18/25 New Medications: Amox/Clavulanate [Augmentin 875-125 Tab] 875 mg PO BID #28 tab Insulin Glargine,Hum.rec.anlog [Lantus] 10 unit SQ BEDTIME #300 ml Hydrocodone 5/APAP 325 [[place] 5/325*] 1 tab PO Q4H PRN #18 tab PRN Reason: Pain Scale 5-7 (Moderate) Followup: Vinnie Steiner MD [ACTIVE - CAN ADMIT] - 1-2 Weeks (Follow-up with surgery in 2 weeks) NONE,NONE [Primary Care Provider] -
[2025-05-18 11:23] VITALS: O2SAT 98
[2025-05-18 12:38] VITALS: BP 159/97; TEMP 97.6
== END 2025-05-18 14:00 | disposition home or self-care (01) | DRG 571 ==
LOC: ER 23:23 → ERHOLD 05-17 05:32 → 4TH 05-17 07:34
PROVIDERS: ADMIT Family Medicine; ATTEND Internal Medicine
PROC: 0JB80ZZ Excision of Abdomen Subcutaneous Tissue and Fascia, Open Approach (ICD-10-PCS; principal; 2025-05-17 13:30)
DX: L03.311 Cellulitis of abdominal wall (principal); E87.1 Hypo-osmolality and hyponatremia; E87.20 Acidosis, unspecified; L02.211 Cutaneous abscess of abdominal wall; E66.9 Obesity, unspecified; E11.65 Type 2 diabetes mellitus with hyperglycemia; J45.909 Unspecified asthma, uncomplicated; F17.210 Nicotine dependence, cigarettes, uncomplicated; Z79.4 Long term (current) use of insulin; Z68.38 Body mass index [BMI] 38.0-38.9, adult; Z90.49 Acquired absence of other specified parts of digestive tract; Z79.899 Other long term (current) drug therapy
CPT/HCPCS: 36415; 74177; 80053; 81001; 82947; 83036; 83605; 84703; 85025; 85610; 85730; 87040; 87070; 87075; 87077; 87186; 87205; 93005; 96365; 96367; 96375; 99285; J0692; J0696; J2003; J2250; J2270; J2405; J2704; J3010; J3370; J7030; J7040; J7050; Q9967